=== PATIENT | male | born 1970 | race African-American/Black ===

== ENCOUNTER 2019-06-11 00:32 | Emergency (ER) | payer MEDICAID ==
[~2019-06-11] VITALS: Ht 175.3 cm; Wt 58.6 kg
[~2019-06-11 00:32] MED LIST: CLIN-97 PO
[2019-06-11 00:42] VITALS: BP 134/75
[2019-06-11] MEDS ORDERED: CEPH500C5 PO (01:00)
[2019-06-11] MEDS ORDERED: ibuprofen tablet 400 MG TABLET PO ONE (01:00)
[2019-06-11] MEDS ORDERED: acetaminophen 325mg tablet PO ONE (01:25)
== END 2019-06-11 01:27 | disposition home or self-care (01) ==
LOC: ER 00:33
DX: H60.12 Cellulitis of left external ear (principal); J45.909 Unspecified asthma, uncomplicated; Z79.2 Long term (current) use of antibiotics
CPT/HCPCS: 99283